=== PATIENT | female | born 1990 | race African-American/Black ===

== ENCOUNTER 2016-08-27 19:44 | Emergency (ER) ==
[2016-08-27] MEDS ORDERED: ZOFRAN IV ONE (20:18)
--- NOTE | 2016-08-27 20:22 | PROVIDER DOCUMENTATION ---
HPI-Neurological Disorder - General Source: patient - History of Present Illness-Neuro Severity: reports: mild Onset/Duration: reports: this evening Timing: reports: still present Context: reports: found unresponsive by family Character of Altered Mental Status: reports: decreased responsiveness Any recent trauma/injury?: reports: none Cognitive Baseline: alert, oriented x3 Gait Baseline: walks without assistance Associated Symptoms: reports: headache, nausea, vomiting Similar Symptoms Previously?: No Recently seen or treated by another doctor?: No <Verónica Menezes - Last Filed: 08/27/16 21:10> <Maria Del Carmen Umaña - Last Filed: 08/27/16 22:23> - General Chief Complaint: Altered Mental Status Stated Complaint: ams Time Seen by Provider: 08/27/16 20:09 Allergies/Adverse Reactions: Patient Allergies Allergy/AdvReac Type Severity Reaction Status Date / Time No Known Allergies Allergy Verified 08/27/16 20:17 Home Medications: Home Medication List Medication Instructions Recorded Confirmed Last Taken Type Metformin [Glucophage] 500 mg PO BID CC #60 tablet 03/16/16 06/15/16 06/14/16 Rx Hydrocodone/APAP 5 mg/325 mg 1 each PO Q8H PRN PRN #10 tablet 06/15/16 Unknown Rx [[place]-5] Ondansetron Odt [Zofran 4 mg Odt] 4 mg PO Q6H PRN PRN #10 tablet 06/15/16 Unknown Rx Sulfamethoxazole/Trimethoprim 1 each PO BID #20 tablet 06/15/16 Unknown Rx [Bactrim Ds Tablet] Ondansetron [Zofran] 4 mg PO Q6H PRN PRN #20 tablet 08/27/16 Unknown Rx - History of Present Illness-Neuro Nature of Presenting Problem: 26 year old F presents to the ED via EMS with a cc of altered mental status. Pt states that she remembers sitting down watching TV with her children and falling asleep on the couch. Per nurse, family could not wake her so they put her in a cold bath. PT was still not arousable. EMS was called. On EMS arrival, pt was still not arousable. En-route to the ED, pt began responding again. Pt admits to taking a Adderol that was not hers but states that she prescribed them. PT states that she has been getting intermittent headaches x2 weeks. ( Verónica Menezes) Review of Systems - Adult - REVIEW OF SYSTEMS - ADULT Constitutional: denies: chills, fever Eyes: reports: no symptoms reported Ears, Nose, Mouth & Throat: reports: no symptoms reported Cardiovascular: reports: no symptoms reported Respiratory: reports: no symptoms reported Gastrointestinal: reports: nausea, vomiting. denies: abdominal pain, diarrhea Genitourinary: reports: no symptoms reported Musculoskeletal: reports: no symptoms reported Integumentary: reports: no symptoms reported Neurological: reports: headache/migraines. denies: dizziness/vertigo, numbness , paresthesia Psychiatric: reports: no symptoms reported Endocrine: reports: no symptoms reported Hematologic/Lymphatic: reports: no symptoms reported Allergic/Immunologic: reports: no symptoms reported All Other Systems: Reviewed and Negative <Verónica Menezes - Last Filed: 08/27/16 21:10> Past History - Adult - PAST MEDICAL HISTORY-ADULT Review of Records: reports: Nursing Assessment Review, Medications Reviewed Major Childhood Illnesses: reports: denies history Cardiovascular: reports: denies history Respiratory: reports: denies history Gastrointestinal: reports: denies history Genitourinary: reports: denies history Musculoskeletal: reports: denies history Neurological: reports: denies history Psychiatric: reports: anxiety, bipolar, depression Endocrine/Immune: reports: Diabetes Other Conditions: reports: denies history - PRIOR SURGERIES/PROCEDURES Surgical/Procedure History: reports: BTL - IMMUNIZATION STATUS Childhood Immunizations: See Nurse Assessment Flu Vaccine: See Nurse Assessment - FAMILY HISTORY Family History: reviewed, not pertinent - SOCIAL HISTORY Smoking: cigarettes, less than 1 pack/day Substance Use: none/never <Verónica Menezes - Last Filed: 08/27/16 21:10> Physical Exam- Neurological - Physical Exam-Neuro Initial Vital Signs Reviewed: Yes General Appearance: alert, no apparent distress Eye Exam: bilateral eye: normal inspection, PERRL, EOMI Head Injury: no evidence of injury Respiratory: chest non-tender, lungs clear, normal breath sounds Cardiovascular: normal peripheral pulses, no edema, tachycardia Extremity: normal inspection boarding mother Exam: normal hearing, normal speech, PERRL Motor/Sensory: no motor deficit, no sensory deficit, no pronator drift, negative Babinski's sign Neurologic: boarding mother II-XII nml as tested, no motor/sensory deficits Integumentary: normal color, normal turgor, warm/dry Psych/Mental Status: oriented x 3 <Verónica Menezes - Last Filed: 08/27/16 21:10> Progress - EKG 1 Time of EKG reading by physician:: 19:47 EKG Read and Signed by:: Ricky Elmore EKG Interpretation (*Must complete 3 of following elements*): Abnormal Rate: 82 Rhythm: NSR with sinus arrhythmia ST Wave: non-specific ST changes <Verónica Menezes - Last Filed: 08/27/16 21:10> - CT/MRI 1 CT Study: Head Impression: Normal ([facility] radiology prelim Dr. Van) <Maria Del Carmen Umaña - Last Filed: 08/27/16 22:23> - PLAN OF CARE/RESULTS Progress/Plan/Lab Results: Vital Signs Temp Pulse Resp BP Pulse Ox 08/27/16 20:50 68 11 L 98/63 98 08/27/16 19:54 97.7 F 96 H 18 116/56 95 No Known Allergies Allergy (Verified 08/27/16 20:17) Metformin [Glucophage] 500 mg PO BID CC #60 tablet 03/16/16 Hydrocodone/APAP 5 mg/325 mg [[place]-5] 1 each PO Q8H PRN PRN #10 tablet Ondansetron Odt [Zofran 4 mg Odt] 4 mg PO Q6H PRN PRN #10 tablet 06/15/16 Sulfamethoxazole/Trimethoprim [Bactrim Ds Tablet] 1 each PO BID #20 tablet 06/15 I&O 08/26/16 08/27/16 08/28/16 06:59 06:59 06:59 Output Total 15 Balance -15 Laboratory 08/27/16 08/27/16 08/27/16 21:00 20:20 20:20 WBC RBC Hgb Hct MCV MCH MCHC RDW Std Deviation Plt Count MPV Immature Gran % (Auto) Neut % (Auto) Lymph % (Auto) [place] % (Auto) Eos % (Auto) Baso % (Auto) Immature Gran # (Auto) Neut # (Auto) Lymph # (Auto) [place] # (Auto) Eos # (Auto) Baso # (Auto) PT INR PTT ([place] FS) Sodium Potassium Chloride Carbon Dioxide Anion Gap BUN Creatinine Estimated GFR/1.73 m2 BUN/Creatinine Ratio Glucose Calculated Osmolality Calcium Total Bilirubin AST ALT Alkaline Phosphatase Creatine Kinase Troponin T Total Protein Albumin Globulin Albumin/Globulin Ratio Plasma Lactate 2.0 Urine Source CLEAN CATCH Urine Color YELLOW Urine Turbidity HAZY Urine pH 6.5 Ur Specific [place] 1.016 Urine Protein TRACE A Ur Glucose (Stick) 1000 A Ur Ketones (Stick) NEGATIVE Urine Blood NEGATIVE Urine Nitrite NEGATIVE Urine Bilirubin NEGATIVE Urobilinogen Dipstick NORMAL Urine Leukocytes NEGATIVE Urine WBC (Auto) <10 Urine RBC (Auto) <10 U Epithel Cells (Auto) <10 Urine Bacteria (Auto) NEGATIVE Urine Opiates Screen NONE DETECTED Ur Oxycodone Screen NONE DETECTED Ur Methadone, Qual NONE DETECTED Ur Barbiturates Screen NONE DETECTED Ur Phencyclidine Scrn NONE DETECTED Ur Amphetamines Screen NONE DETECTED U Benzodiazepines Scrn NONE DETECTED Urine Cocaine Screen PRESUMPTIVE POSITIVE A U Cannabinoids Screen NONE DETECTED Plasma/Serum Ethyl Alc 08/27/16 08/27/16 08/27/16 19:45 19:45 19:45 WBC RBC Hgb Hct MCV MCH MCHC RDW Std Deviation Plt Count MPV Immature Gran % (Auto) Neut % (Auto) Lymph % (Auto) [place] % (Auto) Eos % (Auto) Baso % (Auto) Immature Gran # (Auto) Neut # (Auto) Lymph # (Auto) [place] # (Auto) Eos # (Auto) Baso # (Auto) PT 10.1 INR 0.95 PTT ([place] FS) 27.0 Sodium 141 Potassium 3.8 Chloride 101 Carbon Dioxide 23 L Anion Gap 17 BUN 10 Creatinine 1.1 H Estimated GFR/1.73 m2 > 60 BUN/Creatinine Ratio 9 Glucose 260 H Calculated Osmolality 289 Calcium 8.6 L Total Bilirubin 0.12 L AST 21 ALT 20 Alkaline Phosphatase 102 Creatine Kinase 116 Troponin T < 0.010 Total Protein 7.4 Albumin 3.8 Globulin 3.6 Albumin/Globulin Ratio 1.1 Plasma Lactate Urine Source Urine Color Urine Turbidity Urine pH Ur Specific [place] Urine Protein Ur Glucose (Stick) Ur Ketones (Stick) Urine Blood Urine Nitrite Urine Bilirubin Urobilinogen Dipstick Urine Leukocytes Urine WBC (Auto) Urine RBC (Auto) U Epithel Cells (Auto) Urine Bacteria (Auto) Urine Opiates Screen Ur Oxycodone Screen Ur Methadone, Qual Ur Barbiturates Screen Ur Phencyclidine Scrn Ur Amphetamines Screen U Benzodiazepines Scrn Urine Cocaine Screen U Cannabinoids Screen Plasma/Serum Ethyl Alc 08/27/16 08/27/16 19:45 19:45 WBC 19.51 H RBC 4.28 Hgb 12.1 Hct 37.2 MCV 86.9 MCH 28.3 MCHC 32.5 L RDW Std Deviation 14.1 Plt Count 378 MPV 9.7 Immature Gran % (Auto) 0.5 Neut % (Auto) 89.5 H Lymph % (Auto) 7.3 L [place] % (Auto) 1.9 Eos % (Auto) 0.7 Baso % (Auto) 0.1 Immature Gran # (Auto) 0.10 H Neut # (Auto) 17.46 H Lymph # (Auto) 1.42 [place] # (Auto) 0.37 Eos # (Auto) 0.14 Baso # (Auto) 0.02 PT INR PTT ([place] FS) Sodium Potassium Chloride Carbon Dioxide Anion Gap BUN Creatinine Estimated GFR/1.73 m2 BUN/Creatinine Ratio Glucose Calculated Osmolality Calcium Total Bilirubin AST ALT Alkaline Phosphatase Creatine Kinase Troponin T Total Protein Albumin Globulin Albumin/Globulin Ratio Plasma Lactate Urine Source Urine Color Urine Turbidity Urine pH Ur Specific [place] Urine Protein Ur Glucose (Stick) Ur Ketones (Stick) Urine Blood Urine Nitrite Urine Bilirubin Urobilinogen Dipstick Urine Leukocytes Urine WBC (Auto) Urine RBC (Auto) U Epithel Cells (Auto) Urine Bacteria (Auto) Urine Opiates Screen Ur Oxycodone Screen Ur Methadone, Qual Ur Barbiturates Screen Ur Phencyclidine Scrn Ur Amphetamines Screen U Benzodiazepines Scrn Urine Cocaine Screen U Cannabinoids Screen Plasma/Serum Ethyl Alc Orders Category Date Time Status Cardiac Monitoring DIRECTED Care 08/27/16 20:16 Active Finger Stick Blood Sugar (ED) DIRECTED Care 08/27/16 20:16 Active Saline Loc NOW Care 08/27/16 20:16 Active HEAD W/O CONTRAST [CT] Stat Exams 08/27/16 20:17 Taken ALCOHOL BLOOD Stat Lab 08/27/16 19:45 Completed CBC WITH ELECTRONIC DIFF [HEME] Stat Lab 08/27/16 19:45 Completed CK PROFILE [SP CHEM] Stat Lab 08/27/16 19:45 Completed COMPREHENSIVE METABOLIC PANEL [CHEM] Stat Lab 08/27/16 19:45 Completed LACTATE, PLASMA [CHEM] Stat Lab 08/27/16 21:00 Completed PROTIME WITH INR [COAG] Stat Lab 08/27/16 19:45 Completed PTT [COAG] Stat Lab 08/27/16 19:45 Completed TROPONIN T Stat Lab 08/27/16 19:45 Completed URINALYSIS W/POSS RFLX CULT [URINALYSIS] Stat Lab 08/27/16 20:20 Completed URINE DRUG SCREEN Stat Lab 08/27/16 20:20 Completed Ondansetron [Zofran] Med 08/27/16 20:18 Discontinued 4 mg IV NOW ONE Pulse Oximetry Stat Oth 08/27/16 20:16 Active EKG [EKG] Stat Ther 08/27/16 20:16 Ordered (Maria Del Carmen Umaña) Departure <Verónica Menezes - Last Filed: 08/27/16 21:10> - Departure Time of Disposition Order: 22:22 Certified Medical Emergency: Emergent <Maria Del Carmen Umaña - Last Filed: 08/27/16 22:23> - Departure DIAGNOSIS: Black-out (not amnesia), Cocaine abuse Disposition: HOME 01 Condition: Stable Additional Instructions: Follow up with your primary care physician ED Follow Up Instructions: You have been treated by a care provider in the Emergency Department. These instructions are being provided to you so you can have an understanding of how to care for yourself upon discharge. Upon discharge from the Emergency Department, you are responsible for making arrangements for follow-up care by a physician of your choice. Take all prescribed medications as directed. Return to the Emergency Department immediately for any new or worsening symptoms. You may call the Physician Referral phone number at [phone] to obtain a list of Physicians who are taking new patients. Prescriptions: Ondansetron [Zofran] 4 mg PO Q6H PRN PRN #20 tablet PRN Reason: Nausea Attestation - Scribe Verification/Attestation Scribe:: Verónica Menezes Acting as Scribe for:: Maria Del Carmen Umaña Scribe documention review:: This chart was documented by a scribe and accurately reflects the service the provider performed and the decisions made by the provider. <Verónica Menezes - Last Filed: 08/27/16 21:10> Physician Attestation
[2016-08-27 20:34] LABS: BASO% 0.1 % (0.0-0.8); EOS# 0.14 X1000 (0.0-0.7); EOS% 0.7 % (0.0-10.0); HEMATOCRIT 37.2 % (37.0-47.0); HEMOGLOBIN 12.1 g/dL (12.0-16.0); IMM GRAN% 0.5 % (0.0-0.5); LYMPH# 1.42 X1000 (1.2-3.4); LYMPH% 7.3 % (20.5-51.1); MANUAL DIFF NEEDED? NO; MCH 28.3 PG (27-31); MCHC 32.5 g/dL (33-37); MCV 86.9 FL (81-99); MONO# 0.37 X1000 (0.11-0.59); MONO% 1.9 % (1.7-9.3); MPV 9.7 FL (7.4-10.4); NEUT% 89.5 % (42.2-75.2); PLT 378 X1000 (130-400); RBC 4.28 XMIL (4.2-5.4)
[2016-08-27 20:35] LABS: URINE CULTURE NEEDED? NO; URINE MICRO REVIEW NEEDED? NO; URINE SOURCE CLEAN CATCH
[2016-08-27 20:43] LABS: BILIRUBIN URINE NEGATIVE (NEGATIVE); BLOOD URINE NEGATIVE (NEGATIVE); COLOR YELLOW; GLUCOSE URINE 1000 mg/dL (NEGATIVE); LEUKOCYTES URINE NEGATIVE (NEGATIVE); NITRITE URINE NEGATIVE (NEGATIVE); PH URINE 6.5; PROTEIN URINE TRACE mg/dL (NEGATIVE); SP GRAVITY URINE 1.016; TURBIDITY URINE HAZY (CLEAR); UR EPITHELIAL CELLS <10 /HPF (<10); URINE BACTERIA NEGATIVE /HPF; URINE RBC <10 /HPF (<10); URINE WBC <10 /HPF (<10); UROBILINOGEN URINE NORMAL (NORMAL)
[2016-08-27 20:48] LABS: INR 0.95; PROTIME 10.1 Seconds (9.2-11.7)
[2016-08-27 20:55] LABS: UR AMPHETAMINES QUAL NONE DETECTED (NONE DETECT); UR BARBITUATES QUAL NONE DETECTED (NONE DETECT); UR BENZODIAZEPIN QUAL NONE DETECTED (NONE DETECT); UR CANNABINOIDS QUAL NONE DETECTED (NONE DETECT); UR COCAINE QUAL PRESUMPTIVE POSITIVE (NONE DETECT); UR METHADONE QUAL NONE DETECTED (NONE DETECT); UR OPIATES QUAL NONE DETECTED (NONE DETECT); UR OXYCODONE QUAL NONE DETECTED (NONE DETECT); UR PCP QUAL NONE DETECTED (NONE DETECT)
[2016-08-27 20:55] LABS: AGAP 17; ALBUMIN 3.8 g/dL (3.5-5.0); ALKALINE PHOSPHATASE 102 U/L (32-104); BUN 10 mg/dL (8-22); CALCIUM 8.6 mg/dL (8.8-10.2); CHLORIDE 101 mmol/L (98-107); CK PROFILE 116 U/L (24-173); COSMO 289; GOT 21 U/L (10-30); GPT 20 U/L (10-36); POTASSIUM 3.8 mmol/L (3.5-5.1); SODIUM 141 mmol/L (136-145); TCO2 23 mmol/L (25-35); TOTAL BILIRUBIN 0.12 mg/dL (0.20-1.00); TOTAL PROTEIN 7.4 g/dL (6.3-8.3)
[2016-08-27 22:26] VITALS: BP 103/60
--- NOTE | 2016-08-28 01:03 | Diag Imaging Result Document ---
PROCEDURE NAME: HEAD W/O CONTRAST - 08/27/2016 STUDY: CT brain without contrast. PROTOCOL: Dose reduction protocol. No parenchymal hemorrhage. No epidural or subdural hematoma. No subarachnoid hemorrhage. No mass identified on this noncontrasted exam. No hydrocephalus. No midline shift. No sinus opacification. IMPRESSION: No hemorrhage. Negative brain CT without contrast. A preliminary report was given at 10:09 p.m.
--- NOTE | 2016-08-28 07:44 | EKG Report ---
Test Performed on : 08/27/2016 7:47:40 PM Test Reason : AMS Blood Pressure : / mmHG Vent. Rate : 082 BPM Atrial Rate : 082 BPM P-R Int : 130 ms QRS Dur : 090 ms QT Int : 388 ms P-R-T Axes : 062 034 011 degrees QTc Int : 453 ms Normal sinus rhythm. with sinus arrhythmia. Nonspecific T wave abnormality Abnormal ECG No previous ECGs available Unconfirmed Result
== END 2016-08-27 22:41 | disposition home or self-care (01) ==
LOC: EDBD → ED 19:44
DX: R55 Syncope and collapse (principal); F14.10 Cocaine abuse, uncomplicated; R94.31 Abnormal electrocardiogram [ECG] [EKG]; R41.82 Altered mental status, unspecified; R51 Headache; R11.2 Nausea with vomiting, unspecified; E11.9 Type 2 diabetes mellitus without complications; F17.210 Nicotine dependence, cigarettes, uncomplicated; Z79.899 Other long term (current) drug therapy
CPT/HCPCS: 70450; 80053; 81001; 82550; 82948; 83605; 84484; 85025; 85610; 85730; 93005; G0480; J2405; 80320; 80324; 80345; 80346; 80349; 80353; 80358; 80361; 80365; 83992